=== PATIENT | female | born 1995 | race Caucasian/White ===

== ENCOUNTER 2016-06-28 17:00 | Emergency (ER) | payer OTHER ==
[~2016-06-28 17:00] MED LIST: PEP20; PERCOCET1 TA4 PO; TORATAB PO; ZOFRAN4 PO
== END 2016-06-28 18:48 | disposition left against medical advice (07) ==
LOC: ER 17:00
DX: R06.00 Dyspnea, unspecified (principal); R05 Cough; R06.2 Wheezing; Z53.21 Procedure and treatment not carried out due to patient leaving prior to being seen by health care provider
CPT/HCPCS: 93005